=== PATIENT | female | born 1945 | race Caucasian/White ===

== ENCOUNTER 2016-11-21 14:50 | Inpatient (IN) | payer BC, OTHER ==
[~2016-11-21] VITALS: Ht 172.7 cm; Wt 60.6 kg
[2016-11-21 15:45] LABS: Basophils # (auto) 0 uL; Basophils % (auto) 0.5 % (0.0-2.0); Eosinophils # (auto) 0 uL; Eosinophils % (auto) 0.7 % (0.0-7.0); Hematocrit 40.9 % (36.0-46.0); Hemoglobin 13.4 g/dL (12.2-16.2); Lymphocytes # (auto) 1.6 uL; Lymphocytes % (auto) 30.5 % (10.0-50.0); Mean Corpuscular Hemoglobin 30.7 pg (28.0-32.0); Mean Corpuscular Hgb Conc. 32.6 g/dL (32.0-36.0); Mean Corpuscular Volume 94.2 fL (80.0-100.0); Mean Platelet Volume 6.6 fL (7.4-10.4); Monocytes # (auto) 0.4 uL; Monocytes % (auto) 8.1 % (0.0-12.0); Neutrophils # (auto) 3.2 uL; Neutrophils % (auto) 60.2 % (37.0-80.0); Platelet Count (auto) 274 10^3/uL (140-450); Red Cell Distribution Width 14.1 % (11.6-16.0); White Blood Cell 5.3 10^3/uL (4.4-10.8)
[2016-11-21 15:51] LABS: Albumin 3.5 g/dL (3.4-5.0); BUN/Creatinine Ratio 15.8; Calcium 8.9 mg/dL (8.5-10.1); Magnesium 2.2 mg/dL (1.6-2.6); Potassium 3.7 mmol/L (3.5-5.1)
[2016-11-21 15:54] LABS: Bilirubin, Total 0.5 mg/dL (0.2-1.0); Total Protein 6.5 g/dL (6.4-8.2)
[2016-11-21] MEDS ORDERED: ONDANSETRON HCL 4 MG/2 ML VIAL IV PRN (22:30)
[2016-11-21] MEDS ORDERED: HYDROcodone-ACET 5/325MG TAB PO PRN (22:30)
[2016-11-21] MEDS ORDERED: DOCUSATE SOD 100 MG CAP PO PRN (22:30)
[2016-11-21 23:00] VITALS: BP 143/61
[2016-11-22] MEDS: ACETAMINOPHEN 325 MG TAB PO PRN ×3 (00:26→16:19)
[2016-11-22] MEDS: SODIUM CHLORIDE 0.9% 1,000 ML IV SCH ×2 (01:49→16:19)
[2016-11-22] MEDS: TEMAZEPAM 15 MG CAP PO PRN ×2 (01:49→22:59)
[2016-11-22 05:19] VITALS: BP 128/68
[2016-11-22 06:03] LABS: Basophils # (auto) 0 uL; Basophils % (auto) 0.6 % (0.0-2.0); Eosinophils # (auto) 0.1 uL; Eosinophils % (auto) 1.4 % (0.0-7.0); Hemoglobin 12.2 g/dL (12.2-16.2); Lymphocytes # (auto) 1.8 uL; Lymphocytes % (auto) 36.2 % (10.0-50.0); Mean Corpuscular Hemoglobin 30.7 pg (28.0-32.0); Mean Corpuscular Volume 93.2 fL (80.0-100.0); Mean Platelet Volume 6.8 fL (7.4-10.4); Monocytes # (auto) 0.5 uL; Monocytes % (auto) 10.2 % (0.0-12.0); Neutrophils # (auto) 2.5 uL; Neutrophils % (auto) 51.6 % (37.0-80.0); Platelet Count (auto) 232 10^3/uL (140-450); Red Cell Distribution Width 13.9 % (11.6-16.0); White Blood Cell 4.9 10^3/uL (4.4-10.8)
[2016-11-22 06:20] LABS: Albumin 3.2 g/dL (3.4-5.0); BUN/Creatinine Ratio 18.5; Bilirubin, Total 0.3 mg/dL (0.2-1.0); Potassium 3.7 mmol/L (3.5-5.1); Total Protein 5.9 g/dL (6.4-8.2)
[2016-11-22] MEDS: ARIPIPRAZOLE 2 MG PO SCH (08:49)
[2016-11-22] MEDS: THYROID 60 MG TAB PO SCH (08:49)
[2016-11-22] MEDS: ENOXAPARIN SOD 40 MG/0.4 ML SYRINGE SC SCH (08:50)
[2016-11-22] MEDS: SERTRALINE HCL 50 MG TAB PO SCH (08:50)
[2016-11-22] MEDS: FAMOTIDINE 20 MG TAB PO SCH ×2 (08:50→23:00)
[2016-11-22] MEDS: ATENOLOL 25 MG TAB PO SCH (08:52)
[2016-11-22 09:00] VITALS: BP_SYST 104; BP_SYST 134; BP_DIAS 67; BP_DIAS 69
[2016-11-22] MEDS ORDERED: ASPirin 81 mg TAB PO SCH (10:00)
[2016-11-22 13:00] VITALS: BP_SYST 104; BP_SYST 134; BP_DIAS 67; BP_DIAS 98
[2016-11-22] MEDS ORDERED: LORazepam 2MG/ML-1ML VIAL IV ONE (14:45)
[2016-11-22 16:34] VITALS: BP 139/68
[2016-11-22 18:56] LABS: Urine Bilirubin Negative (Negative); Urine Blood Negative /uL (Negative); Urine Color Yellow (Yellow); Urine Glucose Normal (Normal); Urine Ketone Negative (Negative); Urine Nitrite Negative (Negative); Urine RBC <1 /hpf (0 - 4); Urine Squamous Epithelial Cell FEW /hpf (<5); Urine Urobilinogen Normal (Negative)
[2016-11-22] MEDS ORDERED: LORazepam 2MG/ML-1ML VIAL IV PRN (21:15)
[2016-11-22] MEDS ORDERED: ATORVASTATIN 20 MG TAB PO SCH (22:00)
[2016-11-22] MEDS ORDERED: DONEPEZIL HYDROCHLORIDE 5 MG TAB PO SCH (22:00)
[2016-11-22] MEDS ORDERED: CLON1TAB3 PO (22:41)
[2016-11-23 05:12] VITALS: BP 142/68
[2016-11-23 05:39] LABS: BUN/Creatinine Ratio 23.3; Calcium 8.3 mg/dL (8.5-10.1); Potassium 3.5 mmol/L (3.5-5.1)
[2016-11-23] MEDS: ACETAMINOPHEN 325 MG TAB PO PRN (08:17)
[2016-11-23] MEDS: SODIUM CHLORIDE 0.9% 1,000 ML IV SCH (08:18)
[2016-11-23 09:07] VITALS: BP 141/75
[2016-11-23] MEDS ORDERED: LORazepam 0.5 MG TAB PO ONE (10:00)
[2016-11-23] MEDS: ARIPIPRAZOLE 2 MG PO SCH (10:00)
[2016-11-23] MEDS ORDERED: ASPirin 81 mg TAB PO SCH (10:00)
[2016-11-23] MEDS: SERTRALINE HCL 50 MG TAB PO SCH (10:01)
[2016-11-23] MEDS: ENOXAPARIN SOD 40 MG/0.4 ML SYRINGE SC SCH (10:03)
[2016-11-23] MEDS: ATENOLOL 25 MG TAB PO SCH (10:03)
[2016-11-23] MEDS: FAMOTIDINE 20 MG TAB PO SCH (10:03)
[2016-11-23] MEDS: THYROID 60 MG TAB PO SCH (10:03)
[2016-11-23 12:40] VITALS: BP 141/75
== END 2016-11-23 14:16 | disposition home or self-care (01) | DRG 948 ==
LOC: ER 14:57 → OVERFLOW 14:58 → CENTRAL 23:41
PROVIDERS: ADMIT Nurse Practitioner; ATTEND Internal Medicine
DX: R53.1 Weakness (principal); R26.9 Unspecified abnormalities of gait and mobility; E03.9 Hypothyroidism, unspecified; E86.0 Dehydration; I10 Essential (primary) hypertension; M19.90 Unspecified osteoarthritis, unspecified site; Z96.651 Presence of right artificial knee joint; E87.8 Other disorders of electrolyte and fluid balance, not elsewhere classified; F03.90 Unspecified dementia, unspecified severity, without behavioral disturbance, psychotic disturbance, mood disturbance, and anxiety; I67.2 Cerebral atherosclerosis; Z96.642 Presence of left artificial hip joint; F32.9 Major depressive disorder, single episode, unspecified; F41.9 Anxiety disorder, unspecified; G89.29 Other chronic pain; M54.5 Low back pain; R73.9 Hyperglycemia, unspecified; Z82.49 Family history of ischemic heart disease and other diseases of the circulatory system; Z79.82 Long term (current) use of aspirin; Z80.9 Family history of malignant neoplasm, unspecified; Z98.49 Cataract extraction status, unspecified eye
CPT/HCPCS: 36415; 70450; 80048; 80053; 80061; 81001; 83735; 84443; 84484; 85025; 87086; 93005; 93306; 93886; 97001

== ENCOUNTER 2016-12-01 13:29 | Emergency (ER) | payer BC, OTHER ==
[~2016-12-01] VITALS: Ht 170.2 cm; Wt 76.2 kg
[~2016-12-01 13:29] MED LIST: CLON1TAB3 PO
[2016-12-01 14:29] LABS: Basophils # (auto) 0 uL; Basophils % (auto) 0.8 % (0.0-2.0); Eosinophils # (auto) 0 uL; Eosinophils % (auto) 0.7 % (0.0-7.0); Hematocrit 40.4 % (36.0-46.0); Hemoglobin 13.3 g/dL (12.2-16.2); Lymphocytes # (auto) 1.2 uL; Lymphocytes % (auto) 25.7 % (10.0-50.0); Mean Corpuscular Hemoglobin 30.8 pg (28.0-32.0); Mean Corpuscular Volume 93.4 fL (80.0-100.0); Mean Platelet Volume 6.8 fL (7.4-10.4); Monocytes # (auto) 0.4 uL; Monocytes % (auto) 8.8 % (0.0-12.0); Neutrophils # (auto) 3.1 uL; Platelet Count (auto) 268 10^3/uL (140-450); White Blood Cell 4.8 10^3/uL (4.4-10.8)
[2016-12-01 15:08] LABS: Calcium 8.8 mg/dL (8.5-10.1); Potassium 3.9 mmol/L (3.5-5.1)
[2016-12-01 15:13] LABS: Albumin 3.5 g/dL (3.4-5.0)
[2016-12-01 15:14] LABS: Bilirubin, Total 0.3 mg/dL (0.2-1.0); Total Protein 6.5 g/dL (6.4-8.2)
[2016-12-01 16:32] LABS: Urine Bilirubin Negative (Negative); Urine Blood Negative /uL (Negative); Urine Color Yellow (Yellow); Urine Glucose Normal (Normal); Urine Ketone Negative (Negative); Urine Nitrite Negative (Negative); Urine RBC <1 /hpf (0 - 4); Urine Squamous Epithelial Cell FEW /hpf (<5); Urine Urobilinogen Normal (Negative); Urine pH 5.5 (5.0-8.0)
[2016-12-01 17:02] VITALS: BP 113/61
== END 2016-12-01 17:43 | disposition home or self-care (01) ==
LOC: ER 13:45
DX: F32.9 Major depressive disorder, single episode, unspecified (principal); R53.1 Weakness; F41.9 Anxiety disorder, unspecified; F03.90 Unspecified dementia, unspecified severity, without behavioral disturbance, psychotic disturbance, mood disturbance, and anxiety; I34.1 Nonrheumatic mitral (valve) prolapse; M19.90 Unspecified osteoarthritis, unspecified site; I47.1 Supraventricular tachycardia; Z90.710 Acquired absence of both cervix and uterus; Z88.1 Allergy status to other antibiotic agents
CPT/HCPCS: 36415; 71010; 80053; 81001; 84484; 85025; 85049; 93005; 94761